=== PATIENT | female | born 1995 | race American Indian/Alaskan Native ===

== ENCOUNTER 2018-02-17 18:13 | Emergency (ER) | payer SELFPAY ==
[2018-02-17 18:27] VITALS: BP 115/56
== END 2018-02-17 20:11 | disposition left against medical advice (07) ==
LOC: ED 18:13
DX: M54.2 Cervicalgia (principal); M54.5 Low back pain; Z53.21 Procedure and treatment not carried out due to patient leaving prior to being seen by health care provider

== ENCOUNTER 2018-04-04 16:44 | Emergency (ER) | payer SELFPAY ==
[2018-04-04 16:53] VITALS: BP 117/81
--- NOTE | 2018-04-04 17:15 | Emergency Department Report ---
ED Abdominal Pain HPI - General Chief Complaint: Abdominal Pain Stated Complaint: BUTT BLEEDING/PAIN Time Seen by Provider: 04/04/18 17:00 Source: patient, family Mode of arrival: Ambulatory Limitations: No Limitations - History of Present Illness MD Complaint: abdominal pain, other (Rectal pain) - Related Data Allergies Allergy/AdvReac Type Severity Reaction Status Date / Time No Known Allergies Allergy Unverified 02/17/18 18:27 ED Review of Systems ROS: Stated complaint: BUTT BLEEDING/PAIN Other details as noted in HPI ED Past Medical Hx - Past Medical History Previous Medical History?: No - Surgical History Past Surgical History?: No - Social History Smoking Status: Current Every Day Smoker Substance Use Type: Marijuana ED Physical Exam - General Limitations: No Limitations ED Course Vital Signs 04/04/18 16:49 Temperature 98.6 F Pulse Rate 144 H Respiratory 16 Rate Blood Pressure 117/81 O2 Sat by Pulse 100 Oximetry Critical care attestation.: If time is entered above; I have spent that time in minutes in the direct care of this critically ill patient, excluding procedure time. ED Disposition Condition: Stable Instructions: Abdominal Pain (ED)
[2018-04-04] MEDS ORDERED: MORPHINE IV ONE (17:16)
[2018-04-04] MEDS ORDERED: NACL 0.9% 1000 ML 1,000 ML IV ONE ×2 (17:16→20:01)
[2018-04-04] MEDS ORDERED: LET TOPICAL TP ONE (17:16)
[2018-04-04] MEDS ORDERED: ZOFRAN IV ONE (17:16)
--- NOTE | 2018-04-04 17:58 | Emergency Department Report ---
Blank Doc - Documentation Documentation: This is a 22-year-old female presents to emergency room stating that she was awake and from her sleep with abdominal cramping and rectal bleeding. She states the blood is bright red and come. Watt menstrual cycle. She says she just started her menstrual cycle and she feels like her bite is on fire. Pain is 10 out of 10 burning. Denies any history of hemorrhoid. Denies any urinary burning frequency and urgency. She says she usually have menstrual cramping but it is not not as severe. She did not take any medication. She is presents to emergency room for care. PE Gen.-Pt is crying and states she is in pain. She is well-nourished well- developed Abdomen: tenderness to palpate. Positive guardian. Normal bowel sounds Rectum-bleeding noted. Noted small hemorrhoid and tenderness to palpate externally. A/P Rectal pain-LET topically Rectal hemorrhoid-better Abdominal pain-patient started on IV fluid, Zofran. Morphine 4 mg given. Labs ordered
[2018-04-04 18:44] LABS: Basophils % (Auto) 0.4 % (0.0-1.8); Eosinophils % (Auto) 0.7 % (0.0-4.3); Hematocrit 33.3 % (30.3-42.9); Hemoglobin 11.7 gm/dl (10.1-14.3); Lymphocytes # (Auto) 1.4 K/mm3 (1.2-5.4); Lymphocytes % (Auto) 22.2 % (13.4-35.0); Mean Corpuscular HGB Conc 35 % (30-34); Mean Corpuscular Hemoglobin 29 pg (28-32); Mean Corpuscular Volume 82 fl (79-97); Monocytes # (Auto) 0.8 K/mm3 (0.0-0.8); Monocytes % (Auto) 12.7 % (0.0-7.3); Platelet Count 375 K/mm3 (140-440); Red Blood Count 4.05 M/mm3 (3.65-5.03); Red Cell Distribution Width 15.4 % (13.2-15.2)
[2018-04-04 19:04] LABS: Alanine Aminotransferase 8 units/L (7-56); BUN/Creatinine Ratio 10; Blood Urea Nitrogen 6 mg/dL (7-17); Calcium 8.5 mg/dL (8.4-10.2); Hemolysis Index 0; Lipase 18 units/L (13-60)
[2018-04-04] MEDS ORDERED: TORADOL ONE (19:58)
[2018-04-04] MEDS ORDERED: TORADOL IV ONE (20:01)
--- NOTE | 2018-04-04 20:42 | Cat Scan Report ---
FINAL REPORT EXAM: CT ABDOMEN PELVIS W CON HISTORY: abdominal pain TECHNIQUE: Following IV administration of 100 cc of Omnipaque 300 axial helical imaging was performed through the abdomen and pelvis with sagittal and coronal reformatted images obtained. Delayed axial helical imaging was also performed through the abdomen and pelvis. Comparison: None FINDINGS: The lung bases are without infiltrate, pneumothorax or pleural fluid collection. The heart appears to be normal size. The liver, pancreas, kidneys and adrenal glands are unremarkable in appearance. There are calcified granulomas within the spleen. The spleen is otherwise unremarkable. The gallbladder is moderately distended and unremarkable in appearance. The bowel is normal caliber. The appendix is normal caliber. There is no evidence of pneumoperitoneum nor free fluid. The abdominal aorta is normal caliber. There is no evidence of pathologic intra-abdominal adenopathy by CT size criteria. The urinary bladder is mildly distended and unremarkable in appearance. The uterus and adnexa are notable for an approximately 1.5 centimeter ring-enhancing follicle in the right ovary. Possible corpus luteum cyst. There is the appearance of a tampon within the vagina. The bony structures are unremarkable in appearance. IMPRESSION: 1. No evidence of an acute intra-abdominal process. 2. Calcified granulomas within the spleen.
--- NOTE | 2018-04-04 21:08 | Emergency Department Report ---
ED Abdominal Pain HPI - General Chief Complaint: Abdominal Pain Stated Complaint: BUTT BLEEDING/PAIN Time Seen by Provider: 04/04/18 17:00 Source: patient Mode of arrival: Ambulatory Limitations: No Limitations - History of Present Illness Initial Comments: This is a 22-year-old female presents to emergency room stating that she was awake and from her sleep with abdominal cramping and rectal bleeding. She states the blood is bright red and come. Watt menstrual cycle. She says she just started her menstrual cycle and she feels like her bite is on fire. Pain is 10 out of 10 burning. Denies any history of hemorrhoid. Denies any urinary burning frequency and urgency. She says she usually have menstrual cramping but it is not not as severe. She did not take any medication. She is presents to emergency room for care. MD Complaint: abdominal pain Onset/Timin -: days(s) Location: diffuse, LLQ, suprapubic Radiation: none Migration to: no migration Severity: moderate Severity scale (0 -10): 10 Quality: cramping, aching Consistency: constant Improves With: nothing Worsens With: nothing Associated Symptoms: vomiting, other (vaginal bleeding ). denies: nausea - Related Data LMP Date: 02/21/18 Previous Rx's Medication Instructions Recorded Last Taken Type Glycerin/Witch Holley Pad [Tucks 40 each TP QID PRN #1 box 04/04/18 Unknown Rx Pad] Hydrocortisone/Pramoxine 1 applicatio RC BID #1 each 04/04/18 Unknown Rx [Proctofoam-Hc Foam] Naproxen 500 mg PO BID PRN #30 tablet 04/04/18 Unknown Rx Allergies Allergy/AdvReac Type Severity Reaction Status Date / Time No Known Allergies Allergy Unverified 02/17/18 18:27 ED Review of Systems ROS: Stated complaint: BUTT BLEEDING/PAIN Other details as noted in HPI Constitutional: denies: chills, fever Eyes: denies: eye pain, eye discharge, vision change ENT: denies: ear pain, throat pain Respiratory: denies: cough, shortness of breath, wheezing Cardiovascular: denies: chest pain, palpitations Endocrine: no symptoms reported Gastrointestinal: abdominal pain (llq ), nausea. denies: diarrhea, constipation Genitourinary: frequency. denies: urgency, dysuria, hematuria, discharge, dyspareunia Musculoskeletal: denies: back pain, joint swelling, arthralgia Skin: denies: rash, lesions Neurological: as per HPI Psychiatric: denies: anxiety, depression Hematological/Lymphatic: denies: easy bleeding, easy bruising ED Past Medical Hx - Past Medical History Previous Medical History?: No - Surgical History Past Surgical History?: No - Social History Smoking Status: Current Every Day Smoker Substance Use Type: Marijuana - Medications Home Medications: Home Medications Medication Instructions Recorded Confirmed Last Taken Type Glycerin/Witch Holley Pad [Tucks 40 each TP QID PRN #1 box 04/04/18 Unknown Rx Pad] Hydrocortisone/Pramoxine 1 applicatio RC BID #1 each 04/04/18 Unknown Rx [Proctofoam-Hc Foam] Naproxen 500 mg PO BID PRN #30 tablet 04/04/18 Unknown Rx ED Physical Exam - General Limitations: No Limitations General appearance: alert, in no apparent distress - Head Head exam: Present: atraumatic, normocephalic - Eye Eye exam: Present: normal appearance - ENT ENT exam: Present: mucous membranes moist - Neck Neck exam: Present: normal inspection - Respiratory Respiratory exam: Present: normal lung sounds bilaterally. Absent: respiratory distress - Cardiovascular Cardiovascular Exam: Present: regular rate, normal rhythm, normal heart sounds. Absent: systolic murmur, diastolic murmur, rubs, gallop - GI/Abdominal GI/Abdominal exam: Present: soft, tenderness (llq ), guarding (mild gaurding LLQ left flank), normal bowel sounds. Absent: distended, rebound, rigid, organomegaly, mass, bruit, pulsatile mass, hernia - Rectal Rectal exam: Present: hemorrhoids (external hemorrhoid nonthrombosed no bleeding ) - Extremities Exam Extremities exam: Present: normal inspection - Back Exam Back exam: Present: normal inspection, full ROM. Absent: tenderness, CVA tenderness (R), CVA tenderness (L), muscle spasm, paraspinal tenderness, vertebral tenderness - Neurological Exam Neurological exam: Present: alert, oriented X3, CN II-XII intact, normal gait, reflexes normal - Psychiatric Psychiatric exam: Present: normal affect, normal mood - Skin Skin exam: Present: warm ED Course Vital Signs 04/04/18 04/04/18 04/04/18 16:49 18:06 20:06 Temperature 98.6 F Pulse Rate 144 H Respiratory 16 18 18 Rate Blood Pressure 117/81 O2 Sat by Pulse 100 Oximetry ED Medical Decision Making - Lab Data Result diagrams: 04/04/18 18:17 04/04/18 18:17 - Radiology Data Radiology results: report reviewed, image reviewed no efidence of acture intra abdominal preocess, , calcified granulomas within spleen , right ovarian cyst - Medical Decision Making CT abdomen and pelvis and no acute findings small granulomas and spleen small right ovarian cyst physical exam small external hemorrhoid 10:00 nonthrombosed however painful to touch pain now relieved by lidocaine jelly is no bleeding was stools at this point no bleeding on CT scan patient is tolerating by mouth intake without nausea vomiting likely partial interpretation of pain level as it is now relieved to 1/[address] scan and lab findings patient is tolerating po intake at this time patient advises related to be DC' d home as her symptoms have resolved patient refuses UA vital signs improved with IV fluids heart rate 98 O2 sat 99% on room air reps of 16 patient is a /o 3 hammertoe in no acute distress with DC'd home with prescription for Proctofoam patient will follow with PCP in 2-3 days patient verbalizes understanding and agreement with same Critical care attestation.: If time is entered above; I have spent that time in minutes in the direct care of this critically ill patient, excluding procedure time. ED Disposition Clinical Impression: Abdominal pain Qualifiers: Abdominal location: lower abdomen, unspecified Qualified Code(s): R10.30 - Lower abdominal pain, unspecified Hemorrhoids Qualifiers: Hemorrhoid type: second degree Qualified Code(s): K64.1 - Second degree hemorrhoids Ovarian cyst Qualifiers: Laterality: right Qualified Code(s): N83.201 - Unspecified ovarian cyst, right side Disposition: DC-01 TO HOME OR SELFCARE Is pt being admited?: No Does the pt Need Aspirin: No Condition: Good Instructions: Abdominal Pain (ED), Ovarian Cyst (ED), Hemorrhoids (ED) Additional Instructions: follow up with pcp in 2-3 days as directed Prescriptions: Glycerin/Witch Holley Pad [Tucks Pad] 40 each TP QID PRN #1 box PRN Reason: itching pain Hydrocortisone/Pramoxine [Proctofoam-Hc Foam] 1 applicatio RC BID #1 each Naproxen 500 mg PO BID PRN #30 tablet PRN Reason: Pain , Severe (7-10) Referrals: [facility] [Outside] - 3-5 Days Forms: Work/School Release Form(ED) Time of Disposition: 21:23
[2018-04-04 21:30] LABS: Bacteria,Urine 1+ /HPF (Negative); Bilirubin,Urine NEG (Negative); Blood,Urine NEG (Negative); Color,Urine Yellow (Yellow); Mucus,Urine 3+ /HPF; Protein,Urine <15 mg/dL mg/dL (Negative)
== END 2018-04-04 21:30 | disposition home or self-care (01) ==
LOC: ED 16:44
DX: N83.201 Unspecified ovarian cyst, right side (principal); K64.1 Second degree hemorrhoids
CPT/HCPCS: 36415; 74177; 80053; 81001; 83690; 84703; 85025; 96361; 96374; 96375; 99284; J1885; J2270; J2405; J7030; Q9967